=== PATIENT | female | born 1970 | race Caucasian/White ===

== ENCOUNTER 2023-09-19 08:53 | Day surgery (SDC) | payer OTHER ==
[~2023-09-19] VITALS: Ht 152.4 cm; Wt 62.6 kg
[2023-09-19] MEDS ORDERED: LIDOCAINE 2% 100 MG/5 ML UJET TP ONE (10:07)
[2023-09-19] MEDS ORDERED: fentaNYL citrate 0.05 MG/ML VIAL ONE (10:07)
== END 2023-09-19 12:10 | disposition home or self-care (01) ==
LOC: MDS 08:53 → MMU 08:53 → MDS 12:10
PROVIDERS: ATTEND Internal Medicine Gastroenterology
DX: K59.00 Constipation, unspecified (principal); E11.9 Type 2 diabetes mellitus without complications; E78.00 Pure hypercholesterolemia, unspecified; Z90.49 Acquired absence of other specified parts of digestive tract; Z79.84 Long term (current) use of oral hypoglycemic drugs
CPT/HCPCS: 45378; 82948; J3010